=== PATIENT | female | born 1995 | race Caucasian/White ===

== ENCOUNTER → 2016-09-15 | Outpatient (CLI) | payer OTHER ==
--- NOTE | 2016-09-15 11:28 | US ---
EXAMINATION TYPE: US OB anatomy transabd DATE OF EXAM: 09/15/2016 10:08 AM COMPARISON: NONE HISTORY: 21-year-old female large for Dates, survey. TECHNIQUE: Transabdominal (TA) FINDINGS: EXAM MEASUREMENTS: GESTATIONAL AGE / DATING Physician Established: (18 weeks/6 days) EDC: 02/10/2017 Dates by Current Scan for: (19 weeks/1 days) EDC: 02/08/2017 SURVEY IUP: Single PLACENTA: Posterior PREVIA: No previa. The caudal placental margin is approximately 4 to 5 cm from the internal cervical os. NATALIO: 15.0 cm Normal CERVICAL LENGTH (transabdominal: norm > 3.0cm): 3.8 cm BIOMETRY PRESENTATION: Breech LIE: Longitudinal BPD: 4.2 cm 18 weeks / 6 days HC: 16.2 cm 19 weeks / 0 days AC: 13.3 cm 18 weeks / 6 days FL: 3.0 cm 19 weeks / 2 days ESTIMATED WEIGHT IN GRAMS: 261 grams ESTIMATED WEIGHT IN LBS/OZS: 0 lbs. 9 oz. WEIGHT PERCENTAGE BASED ON ESTABLISHED DATE: 46 % HC/AC: 1.22, Normal FL/AC: Normal HEART RATE: 170 bpm RHYTHM: Normal ANATOMY SEEN (within normal limits): Lateral Vent (< 1 cm) 0.6 cm Cisterna Magna (< 1.1 cm) 0.2 cm Nuchal Fold (< 0.6 cm) 0.4 cm Cerebellum (varies with age) 1.9 cm Choroid Plexus (bilateral) Midline Falx Cavus Septi Pellucidi Stomach Situs Nose / Lips Diaphragm Kidneys (bilateral) Bladder Cord Insert Three Vessel Cord Longitudinal Spine Transverse Spine Arms (bilateral) Legs (bilateral) ANATOMY NOT SEEN: Due to position Four Chamber Heart Outflow tracts: LVOT/RVOT TECHNOLOGIST IMPRESSION: Four chamber heart and outflow tracts not seen due to position, patie nt scheduled OB call back in 2 weeks. IMPRESSION: 1. Single live intrauterine with established gestational age of 18 weeks 6 days. Current ul trasound biometry is concordant (19 weeks 1 day) placing the child at the 46th percentile for weight. 2. The four-chamber heart and outflow tracts were not well seen due to position. The remaining anatomy appears normal. The patient is scheduled for a rescan of missed anatomy in 2 weeks.
--- NOTE | 2016-10-12 08:15 | US ---
EXAMINATION TYPE: US OB Call Back DATE OF EXAM: 10/04/2016 9:50 AM COMPARISON: Prior ultrasound September 2016 CLINICAL HISTORY: OB CALLBACK. Incomplete second trimester anatomical ultrasound study GESTATIONAL AGE / DATING Dates by Initial Survey Scan: (18 weeks/6 days) EDC: 02/10/2017 HEART RATE: 141 bpm RHYTHM: Normal ANATOMY SEEN (second anatomic survey look): Four Chamber Heart: Outflow tracts:? LVOT/RVOT ANATOMY STILL NOT SEEN (requiring an additional callback appt): MATERNAL WALL MEASUREMENT: 2.7 cm from skin to anterior uterine wall (if exam limited due to body koenig bitus). TECHNOLOGIST IMPRESSION: Had another technologist, limited to maternal body habitus and moveme nt. Heart structures appear normal. Single live intrauterine gestation is redemonstrated. Normal cephalad presentation is noted currently . Four-chamber heart and outflow tracts felt within normal limits during real-time scanning per techn ologist, still images are somewhat suboptimal. IMPRESSION: As above
== END | disposition home or self-care (01) ==
LOC: RADUSWWP 07:25
PROVIDERS: ATTEND Obstetrics & Gynecology
DX: O36.62X0 Maternal care for excessive fetal growth, second trimester, not applicable or unspecified (principal); Z3A.18 18 weeks gestation of pregnancy
CPT/HCPCS: 76811

== ENCOUNTER 2017-02-01 07:56 | Outpatient (CLI) | payer OTHER ==
[2017-02-01 10:03] VITALS: PULSE 90; RESP 16; TEMP 96.3
--- NOTE | 2017-02-02 08:31 | P.MSEPDOC ---
Presenting Problems - Arrival Data Date of Arrival on Unit: 02/01/17 Time of Arrival on Unit: 07:56 Mode of Transport: Ambulatory - Complaint OB-Reason for Admission/Chief Complaint: Acute Nausea/Vomiting, Headache Medical History - Information : 2 Para: 1 Term: 1 : 0 Abortions: Spontaneous or Elective: 0 Number of Living Children: 1 - Gestational Age Expected Date of Delivery: 02/10/17 Gestational Age by ROBYN (wks/days): 38 Weeks and 6 Days Review of Systems - Review of Systems Constitutional: No problems Breast: No problems ENT: No problems Cardiovascular: No problems Respiratory: No problems Gastrointestinal: Diarrhea Genitourinary: No problems Musculoskeletal: No problems Neurological: Dizziness Skin: No problems Vital Signs - Temperature Temperature: 96.3 F Temperature Source: Temporal Artery Scan - Pulse Pulse Oximetery Pulse Rate: 90 Pulse Assessment Method: Pulse Oximetry - Respirations Respiratory Rate: 16 Oxygen Delivery Method: Room Air O2 Sat by Pulse Oximetry: 98 Medical Screen Scoring (Pre) - Cervical Exam Dilation: 1-3 cm = 1 Membranes: Intact - Uterine Contractions Frequency: N/A Duration: N/A Intensity: N/A - Maternal Vital Signs Maternal Temperature: N/A Maternal Blood Pressure: N/A Signs of Preeclampsia: N/A Maternal Respirations: N/A - Maternal Trauma Maternal Trauma: N/A - Assessment Baseline FHR: 155 Heart Rate - NICHD Category: Category I (Normal) = 0 NST: Reactive Position: N/A Station: N/A - Total Score Total Score (Pre): 1 - Level of Risk Level of Risk: Low (0-5) Physician Notification (Pre) - Physician Notified Physician Notified Date: 02/01/17 Physician Notified Time: 08:30 Spoke With: Dr Parker New Order Received: No - Notification Comment Comment: OB will be up to the dept after he finishes surgery Physician Notification (Post) - Physician Notified Physician Notified Date: 02/01/17 Physician Notified Time: 09:15 Spoke With: Dr Parker New Order Received: Yes - Notification Comment Comment: pt here for n/v, back pain and h/a. mo signs of active labor. pt will return on for induction.pt may go home after being monitored for [address] Parker Disposition - Disposition OB Disposition: Discharge to home Discharge Date: 02/01/17 Discharge Time: 10:04 I agree with the RN Medical Screening Exam: Yes Risk & Benefit of care provided described in d/c instruction: Yes Diagnosis: FALSE LABOR AT OR AFTER 37 COMPLETED WEEKS OF GESTATION
== END 2017-02-01 10:13 | disposition home or self-care (01) ==
LOC: FBPOP 07:56
PROVIDERS: ATTEND Obstetrics & Gynecology
DX: O47.1 False labor at or after 37 completed weeks of gestation (principal); Z3A.38 38 weeks gestation of pregnancy
CPT/HCPCS: 59025; G0463; 99213

== ENCOUNTER 2017-02-01 16:30 | Outpatient (CLI) | payer OTHER ==
[2017-02-01 17:03] VITALS: BP 123/66; PULSE 87; RESP 18; TEMP 97.7
[2017-02-01 17:13] LABS: Basophils % (A) 0 %; CH 28.3; CHCM 33.1; Eosinophils # (A) 0.1 k/uL (0-0.7); Eosinophils % (A) 1 %; HCT 31.9 % (34.0-46.0); HDW 2.89; HGB 11.2 gm/dL (11.4-16.0); Large Platelets Flag Slight; Luc # (Auto) 0.47; Luc % (Auto) 4; Lymphocytes # (A) 2.7 k/uL (1.0-4.8); Lymphocytes % (A) 20 %; MCH 30.2 pg (25.0-35.0); MCHC 35.1 g/dL (31.0-37.0); MCV 86.1 fL (80.0-100.0); Mean Platelet Volume 10.5; Monocytes # (A) 0.7 k/uL (0-1.0); Monocytes % (A) 5 %; Neutrophils # (A) 9.3 k/uL (1.3-7.7); Neutrophils % (A) 70 %; RDW 14.6 % (11.5-15.5); WBC 13.2 k/uL (3.8-10.6); WBC (Perox) 14.47
[2017-02-01 17:26] LABS: ALT 34 U/L (9-52); AST 15 U/L (14-36); Blood Urea Nitrogen 7 mg/dL (7-17); LDH 373 U/L (313-618); Non-African American GFR(MDRD) >60 (>60 ml/min/1.73 sqM); Uric Acid 3.8 mg/dL (3.7-7.4)
--- NOTE | 2017-02-02 08:31 | P.MSEPDOC ---
Presenting Problems - Arrival Data Date of Arrival on Unit: 02/01/17 Time of Arrival on Unit: 16:30 Mode of Transport: Ambulatory - Complaint OB-Reason for Admission/Chief Complaint: PIH Medical History - Information : 3 Para: 1 Term: 1 : 0 Abortions: Spontaneous or Elective: 0 Number of Living Children: 1 - Gestational Age Expected Date of Delivery: 02/10/17 Gestational Age by ROBYN (wks/days): 38 Weeks and 6 Days Review of Systems - Review of Systems Constitutional: No problems Breast: No problems ENT: No problems Cardiovascular: No problems Respiratory: No problems Gastrointestinal: No problems Genitourinary: No problems Musculoskeletal: No problems Neurological: No problems Skin: No problems Vital Signs - Temperature Temperature: 97.7 F Temperature Source: Oral - Pulse Right Sitting Brachial Pulse Rate: 87 Pulse Assessment Method: Automatic Cuff - Respirations Respiratory Rate: 18 Oxygen Delivery Method: Room Air O2 Sat by Pulse Oximetry: 98 - Blood Pressure Right Arm Sitting Blood Pressure: 123/66 Blood Pressure Mean: 85 Blood Pressure Source: Automatic Cuff Medical Screen Scoring (Pre) - Cervical Exam Dilation: Exam Deferred Effacement: Exam Deferred Membranes: Intact - Uterine Contractions Frequency: N/A Duration: N/A Intensity: N/A - Maternal Vital Signs Maternal Temperature: N/A Maternal Blood Pressure: N/A Signs of Preeclampsia: Headache = 1, Nausea/Vomiting = 1, Visual Disturbance = 1 Maternal Respirations: N/A - Maternal Trauma Maternal Trauma: N/A - Assessment Baseline FHR: 120 Heart Rate - NICHD Category: Category I (Normal) = 0 NST: Reactive Position: N/A Station: N/A - Total Score Total Score (Pre): 3 - Level of Risk Level of Risk: Low (0-5) Physician Notification (Pre) - Physician Notified Physician Notified Date: 02/01/17 Physician Notified Time: 16:40 Spoke With: Keith Faustin Order Received: Yes - Notification Comment Comment: [facility] labs Medical Screen Scoring (Post) - Uterine Contractions Frequency: N/A Duration: N/A Intensity: N/A - Maternal Vital Signs Maternal Temperature: N/A Maternal Blood Pressure: N/A Signs of Preeclampsia: Headache = 1 Maternal Respirations: N/A - Maternal Trauma Maternal Trauma: N/A - Assessment Heart Rate: 135 Heart Rate - NICHD Category: Category I (Normal) = 0 NST: Reactive Position: N/A Station: N/A - Total Score Total Score (Post): 1 - Post Treatment Level of Risk Post Treatment Level of Risk: Low (0-5) Physician Notification (Post) - Physician Notified Physician Notified Date: 02/01/17 Physician Notified Time: 17:45 Physician/Practitioner Notified:: Dr. Parker Spoke With: Dr. Parker New Order Received: Yes (Discharge home) - Notification Comment Comment: Dr. Parker given report of all [facility] labs drawn. All labs within normal limits. Instructions to return on 02/03 for induction of labor. Disposition - Disposition OB Disposition: Discharge to home Discharge Date: 02/01/17 Discharge Time: 17:55 I agree with the RN Medical Screening Exam: Yes Risk & Benefit of care provided described in d/c instruction: Yes Diagnosis: RELATED CONDITIONS, UNSPECIFIED, THIRD TRIMESTER (Elevated blood pressure)
== END 2017-02-01 17:55 | disposition home or self-care (01) ==
LOC: FBPOP 16:30
PROVIDERS: ATTEND Obstetrics & Gynecology
DX: O26.893 Other specified pregnancy related conditions, third trimester (principal); R03.0 Elevated blood-pressure reading, without diagnosis of hypertension; Z3A.38 38 weeks gestation of pregnancy
CPT/HCPCS: 82565; 83615; 84450; 84460; 84520; 84550; 85025

== ENCOUNTER 2017-02-03 06:00 | Inpatient (IN) | payer OTHER ==
[2017-02-03] MEDS ORDERED: TERBUTALINE 1 MG/ML VIAL SQ PRN (06:47)
[2017-02-03] MEDS ORDERED: METHYLERGONOVINE 0.2 MG/ML 1 ML AMP IM PRN (06:47)
[2017-02-03] MEDS ORDERED: LIDOCAINE 1% (PF) 10 MG/ML (30 ML SDV) SQ PRN (06:47)
[2017-02-03] MEDS ORDERED: CARBOPROST TROMETHAMINE 250 MCG/ML 1 ML AMP IM PRN (06:47)
[2017-02-03] MEDS ORDERED: OXYTOCIN 10 UNIT/ML 1 ML VIAL IM PRN (06:47)
[2017-02-03] MEDS ORDERED: OXYTOCIN 20 UNITS/1000 ML NS 1,000 ML IV SCH (07:00)
[2017-02-03 07:07] LABS: Basophils # (A) 0.1 k/uL (0-0.2); Basophils % (A) 0 %; CH 28.6; Eosinophils # (A) 0.2 k/uL (0-0.7); Eosinophils % (A) 1 %; HCT 32.5 % (34.0-46.0); HDW 2.87; HGB 10.7 gm/dL (11.4-16.0); Large Platelets Flag Slight; Luc # (Auto) 0.31; Luc % (Auto) 2; Lymphocytes % (A) 18 %; MCH 28.8 pg (25.0-35.0); MCV 87.2 fL (80.0-100.0); Mean Platelet Volume 11.3; Monocytes # (A) 0.7 k/uL (0-1.0); Monocytes % (A) 5 %; Neutrophils # (A) 12.2 k/uL (1.3-7.7); Neutrophils % (A) 74 %; RBC 3.72 m/uL (3.80-5.40); RDW 14.5 % (11.5-15.5); WBC 16.5 k/uL (3.8-10.6); WBC (Perox) 16.86
[2017-02-03] MEDS: LACTATED RINGERS 1,000 ML IV SCH ×2 (07:16→12:42)
[2017-02-03 07:39] VITALS: BMI 36.9
[2017-02-03] MEDS ORDERED: BUTORPHANOL 1 MG/ML 1 ML VIAL IV PRN (09:11)
[2017-02-03] MEDS ORDERED: SODIUM CHLORIDE 0.9% 100 ML BAG ONE (12:31)
[2017-02-03] MEDS ORDERED: BUPIVACAINE (PF) 0.25% 30 ML VIAL ONE (12:31)
[2017-02-03] MEDS ORDERED: fentaNYL (PF) 50 MCG/ML 5 ML AMP ONE (12:31)
[2017-02-03 15:56] LABS: Glucose,Whole Blood 76 mg/dL (75-99)
[2017-02-03] MEDS ORDERED: BUPIVACAINE (PF) 0.25% 25 ML, fentaNYL (PF) 200 MCG in SODIUM CHLORIDE 0.9% 71 ML EPIDURAL ONE (16:35)
[2017-02-03] MEDS ORDERED: diphenhydrAMINE 50 MG CAP PO PRN (18:17)
[2017-02-03] MEDS ORDERED: ZOLPIDEM 5 MG TAB PO PRN (18:17)
[2017-02-03] MEDS ORDERED: SIMETHICONE 80 MG CHEWABLE PO PRN (18:17)
[2017-02-03] MEDS ORDERED: Acetaminophen-Codeine 300-30mg TAB PO PRN (18:17)
[2017-02-03] MEDS ORDERED: HYDROCORTISONE 2.5% RECTAL CREAM 30 GM TUBE RECTAL PRN (18:17)
[2017-02-03] MEDS ORDERED: ACETAMINOPHEN TAB 325 MG TAB PO PRN (18:17)
[2017-02-03] MEDS ORDERED: WITCH HAZEL 1 EACH MED..PAD TOPICAL PRN (18:17)
[2017-02-03] MEDS ORDERED: BENZOCAINE/MENTHOL SPRAY 1 GM/SPRAY AEROSOL TOPICAL PRN (18:17)
[2017-02-03] MEDS ORDERED: diphenhydrAMINE 25 MG CAP PO PRN (18:17)
[2017-02-03] MEDS ORDERED: diphenhydrAMINE 50 MG/ML 1 ML VIAL IVP PRN ×2 (18:17)
[2017-02-03] MEDS ORDERED: LANOLIN CREAM 5 GM TUBE TOPICAL PRN (18:17)
--- NOTE | 2017-02-03 18:25 | P.HPOB ---
History of Present Illness H&P Date: 02/03/17 Chief Complaint: Intrauterine at 39 weeks: Anti d positive This is a 21-year-old who has been under my care from the beginning of the . Initially in the it was noted that she was Rh antibody positive despite not receiving any Christian gamma. Her care has been coordinated with maternal medicine and there been no significant changes in her antibody titers throughout the gestation. In October at approximately 28 weeks she had a repeat Rh antibody screening was done and at that time her antibody screen was negative. She did receive Christian gamma that time. Unclear whether she has true antibody positivity We have been following her very closely with maternal- medicine. Pertinent other labs did include A- blood type Rh antibody negative was positive for anti-D rubella was immune, hepatitis B surface antigen/RPR/HIV and GBS were all negative. On physical exam vital signs are stable and afebrile. Heart regular, lungs clear, extremities without pain. Osteopathic exam unremarkable. Abdomen soft gravid uterus noted. heart tones in the 140s and reactive. She was dilated to approximate 2 cm and 60% effaced -3 station. Artificial rupture of membranes was performed and clear fluid is noted. Assessment intrauterine at term. Plan Pitocin augmentation of labor with epidural used for analgesia. 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 ) History of Any Multi-Drug Resistant Organisms: None Reported Past Surgical History: No Surgical Hx Reported Past Anesthesia/Blood Transfusion Reactions: No Reported Reaction Past Psychological History: ADD/ADHD, No Psychological Hx Reported Smoking Status: Never smoker - Past Family History Father Family Medical History: Hypertension Medications and Allergies Home Medications Medication Instructions Recorded Confirmed Type Ysc-Qnni-Roimm Acid 1 each PO DAILY 05/01/14 02/03/17 History [-U Capsule] Allergies Allergy/AdvReac Type Severity Reaction Status Date / Time sulfamethoxazole Allergy Rash/Hives Verified 02/03/17 06:46 [From ] trimethoprim [From ] Allergy Rash/Hives Verified 02/03/17 06:46 Exam Osteopathic Statement: *. No significant issues noted on an osteopathic structural exam other than those noted in the History and Physical/Consult. - Vital Signs Vital signs: Vital Signs Temp Pulse Resp BP 02/03/17 06:46 97.2 F L 96 18 132/66 Intake and Output 02/03/17 02/03/17 02/03/17 06:59 14:59 22:59 Other: # Voids 2 Weight 113.398 kg Results Result Diagrams: 02/03/17 06:56 Abnormal Lab Results - Last 24 Hours (Table) 02/03/17 Range/Units 06:56 WBC 16.5 H (3.8-10.6) k/uL RBC 3.72 L (3.80-5.40) m/uL Hgb 10.7 L (11.4-16.0) gm/dL Hct 32.5 L (34.0-46.0) % Neutrophils # 12.2 H (1.3-7.7) k/uL
--- NOTE | 2017-02-03 18:26 | P.PROBDLV ---
Vaginal Delivery Note - . Vaginal Delivery Note: Lisbet progressed to complete and pushing with spontaneous vaginal delivery of a viable female over an intact perineum. Falling deliver the head anterior posterior shoulders were delivered with gentle downward and upward traction followed by the remainder the baby. Mouth and nares were then bulb suctioned and the baby was placed on mother's abdomen where the umbilical cord was allowed to pulsate for 30 seconds prior to clamping and cutting. Nursery personnel was present to assume care. Placenta was then delivered intact and Pitocin was added to the IV. scores were 8 and 8 at one and 5 minutes respectively and the weight is currently pending. Both mother and baby currently appear stable.
[2017-02-03] MEDS: IBUPROFEN 600 MG TAB PO PRN (20:14)
[2017-02-03] MEDS: Acetaminophen-Codeine 300-30mg TAB PO PRN (22:36)
[2017-02-03] MEDS: SENNOSIDES-DOCUSATE SODIUM 1 EACH TAB PO SCH (22:37)
[2017-02-04] MEDS: IBUPROFEN 600 MG TAB PO PRN ×3 (02:08→19:18)
[2017-02-04] MEDS: Acetaminophen-Codeine 300-30mg TAB PO PRN ×4 (04:14→20:19)
[2017-02-04 10:54] VITALS: RESP 16
--- NOTE | 2017-02-04 13:19 | P.PNOBGVD ---
Subjective - Subjective Principal diagnosis: day 1 Interval history: Tessie is doing very well day 1. She is involuting, voiding, tolerating her diet. She voices no complaint. Vital signs are stable and afebrile. Heart regular, lungs clear, extremities without pain. Assessment day 1. Plan continue current care. Patient reports: Reports appetite normal [place]: doing well Objective - Latest Vital Signs Latest vital signs: Vital Signs Temp Pulse Resp BP Pulse Ox 02/04/17 08:00 97.5 F L 100 16 131/85 02/04/17 04:00 98.2 F 95 20 121/76 100 02/04/17 00:00 98.3 F 104 H 19 126/73 96 02/03/17 20:11 97.6 F 94 18 125/74 98 02/03/17 19:41 97.5 F L 98 17 121/93 98 02/03/17 19:11 96 16 120/59 02/03/17 18:55 98 16 130/64 02/03/17 18:40 93 16 134/70 02/03/17 18:25 93 16 134/70 02/03/17 18:10 117 H 16 115/62 Intake and Output 02/03/17 02/04/17 02/04/17 22:59 06:59 14:59 Output Total 150 Balance -150 Output: Estimated Blood Loss 150 Other: # Voids 2 2 - Exam Lungs: bilateral: normal Chest: Normal S1, Normal S2 Extremities: Present: normal Abdomen: Present: normal appearance, soft Uterus: Present: normal, firm
[2017-02-04] MEDS: SENNOSIDES-DOCUSATE SODIUM 1 EACH TAB PO SCH (14:40)
[2017-02-05] MEDS: SENNOSIDES-DOCUSATE SODIUM 1 EACH TAB PO SCH ×2 (00:29→08:12)
[2017-02-05] MEDS: IBUPROFEN 600 MG TAB PO PRN ×2 (01:23→07:48)
[2017-02-05] MEDS: Acetaminophen-Codeine 300-30mg TAB PO PRN ×2 (01:24→07:47)
[2017-02-05 08:11] VITALS: BP 121/71; PULSE 80; TEMP 97.8
--- NOTE | 2017-02-05 09:20 | P.DS ---
Providers Date of admission: 02/03/17 06:30 Expected date of discharge: 02/05/17 Attending physician: Montana Parker Primary care physician: Stated None Hospital Course: Macie is doing very well day 2. She is involuting, voiding, and she is tolerating her diet. She voices no complaints. Vital signs stable and afebrile. Heart regular, lungs clear, extremities without pain. Abdomen is soft uterus is firm lochia is reported be light. Assessment day 2. Plan discharged home follow up with me in 6 weeks. Prescriptions for pain reliever have been provided. Patient Condition at Discharge: Good Plan - Discharge Summary New Discharge Prescriptions: New Acetaminophen-Codeine 300-30mg [Tylenol #3] 1 tab PO Q4H PRN #30 tablet PRN Reason: Pain Ibuprofen [Motrin] 600 mg PO Q6HR PRN #30 tab PRN Reason: Pain No Action Qcn-Ityp-Bnkin Acid [-U Capsule] 1 cap PO DAILY Discharge Medication List Alp-Atza-Mcfmy Acid [-U Capsule] 1 cap PO DAILY 05/01/14 [ History] Acetaminophen-Codeine 300-30mg [Tylenol #3] 1 tab PO Q4H PRN #30 tablet [Rx] Ibuprofen [Motrin] 600 mg PO Q6HR PRN #30 tab 02/05/17 [Rx] Follow up Appointment(s)/Referral(s): Montana Parker DO [Doctor of Osteopathic Medicine] - 6 Weeks Activity/Diet/Wound Care/Special Instructions: No heavy lifting, limit stairs and driving, and pelvic rest. If any high temperatures, heavy bleeding, or severe pain call Discharge Disposition: HOME SELF-CARE
== END 2017-02-05 11:20 | disposition home or self-care (01) | DRG 775 ==
LOC: 4FBP 06:30
PROVIDERS: ADMIT Obstetrics & Gynecology; ATTEND Obstetrics & Gynecology
PROC: 10E0XZZ Delivery of Products of Conception, External Approach (ICD-10-PCS; principal; 2017-02-03)
DX: O99.344 Other mental disorders complicating childbirth (principal); F90.9 Attention-deficit hyperactivity disorder, unspecified type; Z37.0 Single live birth; Z3A.39 39 weeks gestation of pregnancy; Z88.1 Allergy status to other antibiotic agents; Z88.2 Allergy status to sulfonamides; Z82.49 Family history of ischemic heart disease and other diseases of the circulatory system
CPT/HCPCS: 85025; 88307

== ENCOUNTER → 2017-05-25 | Outpatient (CLI) | payer OTHER ==
--- NOTE | 2017-05-25 10:26 | US ---
EXAMINATION TYPE: US pelvis complete transvag DATE OF EXAM: 05/25/2017 COMPARISON: prev OB scans only CLINICAL HISTORY: IUD in Place Z97.5. Pt states for IUD placement, Dr unable to find strings on exam TECHNIQUE: Transvaginal (TV) and Transabdominal (TA), pt stated her bladder felt very full, TV done to supplement IUD images Date of LMP: Pt states unknown EXAM MEASUREMENTS: Uterus: 7.6 x 3.3 x 5.6 cm Endometrial Stripe: 0.9 cm Right Ovary: 2.2 x 1.7 x 1.4 cm Left Ovary: 2.4 x 1.8 x 1.8 cm 1. Uterus: Anteverted Appeared wnl, IUD in correct placement 2. Endometrium: ?possible fluid within canal (pt states recent negative test), otherwise a ppeared wnl 3. Right Ovary: wnl 4. Left Ovary: wnl 5. Bilateral Adnexa: wnl 6. Posterior cul-de-sac: wnl IMPRESSION: 1. Intrauterine device appropriately placed within the endometrial canal. 2. Small amount of intraendometrial fluid could relate to the phase of menses, however correlation wi th beta hCG is recommended to exclude potential ectopic or early gestation.
== END | disposition home or self-care (01) ==
LOC: RADUSWWP 08:18
PROVIDERS: ATTEND Obstetrics & Gynecology
DX: T83.32XA Displacement of intrauterine contraceptive device, initial encounter (principal)
CPT/HCPCS: 76830; 76856

== ENCOUNTER 2019-11-04 15:08 | Emergency (ER) | payer OTHER ==
--- NOTE | 2019-11-04 15:48 | ED ---
Abdominal Pain HPI - General Chief Complaint: Abdominal Pain Stated Complaint: Abd Pain Time Seen by Provider: 11/04/19 15:18 Source: patient Mode of arrival: ambulatory Limitations: no limitations - History of Present Illness Initial Comments: 24-year-old female with history of hiatal hernia and previous cholecystectomy presenting today for chief complaint of constipation, burning left upper quadrant abdominal pain. Patient states that she has history of hiatal hernia and for the past week she has had a burning sensation in the upper abdomen she states that time she is a sour taste in her mouth. Patient states the sensation worsens greatly with eating. patient denies melena, hematochezia. Patient states she has been constipated for the past week. Denies vomiting, admits to nausea. Denies chest pressure, shortness of breath, denies pain with deep inspiration. Patient denies any other complaints and upon arrival she appears well there is no signs of acute distress. Patient denies , denies sexual activity and states she has IUD implanted (Mirena). - Related Data Home Medications Medication Instructions Recorded Confirmed Bsr-Ebic-Astqq Acid 1 cap PO DAILY 05/01/14 02/03/17 [-U Capsule] Previous Rx's Medication Instructions Recorded Acetaminophen-Codeine 300-30mg 1 tab PO Q4H PRN #30 tablet 02/05/17 [Tylenol #3] Ibuprofen [Motrin] 600 mg PO Q6HR PRN #30 tab 02/05/17 Famotidine [Pepcid] 20 mg PO DAILY 7 Days #7 tablet 11/04/19 Ondansetron Odt [Zofran Odt] 4 mg PO Q8HR PRN 7 Days #21 tab 11/04/19 Polyethylene Glycol 3350 [Miralax] 17 gm PO DAILY 7 Days #7 packet 11/04/19 Allergies Allergy/AdvReac Type Severity Reaction Status Date / Time sulfamethoxazole Allergy Rash/Hives Verified 11/04/19 15:17 [From ] trimethoprim [From ] Allergy Rash/Hives Verified 11/04/19 15:17 Review of Systems ROS Statement: Those systems with pertinent positive or pertinent negative responses have been documented in the HPI. ROS Other: All systems not noted in ROS Statement are negative. 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 Eye: Pupils are equal, round and reactive to light, extra-ocular movements are intact. No nystagmus. There is normal conjunctiva bilaterally. No signs of icterus. Cardiovascular: There is a regular rate and rhythm. No murmur, rub or gallop is appreciated. Respiratory: Lungs are clear to auscultation, respirations are non-labored, breath sounds are equal. No wheezes, stridor, rales, or rhonchi. Gastrointestinal: Soft, non-distended, no ventral hernia, not present with patient lift head off stretcher, abdomen is very mildly tender to palpation of the upper abdomen mostly LUQ, epigastric regions, remaining abdomen is nontender, abdomen without masses or organomegaly noted. There is no rebound or guarding present. Musculoskeletal: Normal ROM, no tenderness. Strength 5/5. Sensation intact. Radial pulses equal bilaterally 2+. Neurological: A&O x 3. CN II-XII intact grossly, There are no obvious motor or sensory deficits. Coordination appears grossly intact. Speech is normal. Skin: Skin is warm and dry and no rashes or lesions are noted. Psychiatric: Cooperative, appropriate mood & affect, normal judgment. Limitations: no limitations Course Vital Signs 11/04/19 11/04/19 15:14 17:10 Temperature 97.9 F 98.0 F Pulse Rate 92 75 Respiratory 20 18 Rate Blood Pressure 130/86 128/84 O2 Sat by Pulse 100 99 Oximetry Medical Decision Making - Medical Decision Making Patient's KUB revealed no evidence of obstructive process. There is evidence of constipation. Patient given glycerin suppository per she states she would like to have a bowel movement home not in the hospital. Patient is prescribed bowel regimen. Patient's abdominal exam was benign there is minimal pain to deep palpation. Patient's symptoms as described on history consistent with her history of hiatal hernia and most likely gastric reflux. I discussed the importance of GI follow-up for endoscopy. Patient denied any chest pressure or shortness of breath. EKG no acute findings. At this time feel patient is stable for discharge with outpatient GI and primary care follow-up patient is prescribed Pepcid and given a GI cocktail the emergency department. With the primary discussed at length patient verbalized understanding and was discharged appearing well after discussing case with Dr. Laureano - Lab Data Result diagrams: 11/04/19 15:40 11/04/19 15:40 Lab Results 11/04/19 11/04/19 11/04/19 Range/Units 15:40 15:40 15:40 WBC 9.9 (3.8-10.6) k/uL RBC 4.87 (3.80-5.40) m/uL Hgb 14.6 (11.4-16.0) gm/dL Hct 45.1 (34.0-46.0) % MCV 92.6 (80.0-100.0) fL MCH 30.0 (25.0-35.0) pg MCHC 32.5 (31.0-37.0) g/dL RDW 13.2 (11.5-15.5) % Plt Count 225 (150-450) k/uL Neutrophils % 64 % Lymphocytes % 28 % Monocytes % 5 % Eosinophils % 2 % Basophils % 0 % Neutrophils # 6.3 (1.3-7.7) k/uL Lymphocytes # 2.7 (1.0-4.8) k/uL Monocytes # 0.5 (0-1.0) k/uL Eosinophils # 0.2 (0-0.7) k/uL Basophils # 0.0 (0-0.2) k/uL Sodium (137-145) mmol/L Potassium (3.5-5.1) mmol/L Chloride (98-107) mmol/L Carbon Dioxide (22-30) mmol/L Anion Gap mmol/L BUN (7-17) mg/dL Creatinine (0.52-1.04) mg/dL Est GFR (CKD-EPI)AfAm (>60 ml/min/1.73 sqM) Est GFR (CKD-EPI)NonAf (>60 ml/min/1.73 sqM) Glucose (74-99) mg/dL Plasma Lactic Acid Keys[place]wn (0.7-2.0) mmol/L Calcium (8.4-10.2) mg/dL Total Bilirubin (0.2-1.3) mg/dL AST (14-36) U/L ALT (4-34) U/L Alkaline Phosphatase (38-126) U/L Total Protein (6.3-8.2) g/dL Albumin (3.5-5.0) g/dL Lipase (23-300) U/L Urine Color Yellow Urine Appearance Clear (Clear) Urine pH 6.5 (5.0-8.0) Ur Specific [place] 1.024 (1.001-1.035) Urine Protein Negative (Negative) Urine Glucose (UA) Negative (Negative) Urine Ketones Negative (Negative) Urine Blood Negative (Negative) Urine Nitrite Negative (Negative) Urine Bilirubin Negative (Negative) Urine Urobilinogen <2.0 (<2.0) mg/dL Ur Leukocyte Esterase Negative (Negative) Urine HCG, Qual Not Detected (Not Detectd) 11/04/19 11/04/19 Range/Units 15:40 15:40 WBC (3.8-10.6) k/uL RBC (3.80-5.40) m/uL Hgb (11.4-16.0) gm/dL Hct (34.0-46.0) % MCV (80.0-100.0) fL MCH (25.0-35.0) pg MCHC (31.0-37.0) g/dL RDW (11.5-15.5) % Plt Count (150-450) k/uL Neutrophils % % Lymphocytes % % Monocytes % % Eosinophils % % Basophils % % Neutrophils # (1.3-7.7) k/uL Lymphocytes # (1.0-4.8) k/uL Monocytes # (0-1.0) k/uL Eosinophils # (0-0.7) k/uL Basophils # (0-0.2) k/uL Sodium 137 (137-145) mmol/L Potassium 4.3 (3.5-5.1) mmol/L Chloride 105 (98-107) mmol/L Carbon Dioxide 26 (22-30) mmol/L Anion Gap 6 mmol/L BUN 13 (7-17) mg/dL Creatinine 0.67 (0.52-1.04) mg/dL Est GFR (CKD-EPI)AfAm >90 (>60 ml/min/1.73 sqM) Est GFR (CKD-EPI)NonAf >90 (>60 ml/min/1.73 sqM) Glucose 94 (74-99) mg/dL Plasma Lactic Acid Keys[place]wn 0.6 L (0.7-2.0) mmol/L Calcium 9.8 (8.4-10.2) mg/dL Total Bilirubin 0.6 (0.2-1.3) mg/dL AST 38 H (14-36) U/L ALT 42 H (4-34) U/L Alkaline Phosphatase 116 (38-126) U/L Total Protein 7.5 (6.3-8.2) g/dL Albumin 4.4 (3.5-5.0) g/dL Lipase 43 (23-300) U/L Urine Color Urine Appearance (Clear) Urine pH (5.0-8.0) Ur Specific [place] (1.001-1.035) Urine Protein (Negative) Urine Glucose (UA) (Negative) Urine Ketones (Negative) Urine Blood (Negative) Urine Nitrite (Negative) Urine Bilirubin (Negative) Urine Urobilinogen (<2.0) mg/dL Ur Leukocyte Esterase (Negative) Urine HCG, Qual (Not Detectd) - EKG Data EKG Comments: Ventricular rate 96 bpm, DE interval 136 ms, QRS duration 90 ms, QT/QTC 366/462 ms. This is normal sinus rhythm with a sinus arrhythmia noted. There is no ST elevation or depression appreciated. No acute findings. Disposition Clinical Impression: Constipation, Epigastric pain, Hx of hiatal hernia Disposition: HOME SELF-CARE Condition: Good Instructions (If sedation given, give patient instructions): Hiatal Hernia (ED), Gastroesophageal Reflux Disease (ED), Abdominal Pain (ED) Additional Instructions: Please use medication as discussed. Please follow-up with family doctor in the next 2 days, as well as GI specialist for evaluation of epigastric pain. Please return to emergency room if the symptoms increase or worsen or for any other concerns. Prescriptions: Polyethylene Glycol 3350 [Miralax] 17 gm PO DAILY 7 Days #7 packet Famotidine [Pepcid] 20 mg PO DAILY 7 Days #7 tablet Ondansetron Odt [Zofran Odt] 4 mg PO Q8HR PRN 7 Days #21 tab PRN Reason: Nausea Is patient prescribed a controlled substance at d/c from ED?: No Referrals: Sapphire Sarah MD [Primary Care Provider] - 1-2 days Julia Toussaint MD [STAFF PHYSICIAN] - 1-2 days Time of Disposition: 17:04
[2019-11-04 15:54] LABS: Basophils % (A) 0 %; Eosinophils # (A) 0.2 k/uL (0-0.7); Eosinophils % (A) 2 %; HCT 45.1 % (34.0-46.0); HGB 14.6 gm/dL (11.4-16.0); Lymphocytes # (A) 2.7 k/uL (1.0-4.8); Lymphocytes % (A) 28 %; MCHC 32.5 g/dL (31.0-37.0); MCV 92.6 fL (80.0-100.0); Mean Platelet Volume 9.9; Monocytes # (A) 0.5 k/uL (0-1.0); Monocytes % (A) 5 %; Neutrophils # (A) 6.3 k/uL (1.3-7.7); Neutrophils % (A) 64 %; Platelet Count 225 k/uL (150-450); RBC 4.87 m/uL (3.80-5.40); RDW 13.2 % (11.5-15.5); WBC 9.9 k/uL (3.8-10.6)
[2019-11-04 16:04] LABS: ALT 42 U/L (4-34); AST 38 U/L (14-36); African American GFR (CKD) >90 (>60 ml/min/1.73 sqM); Albumin 4.4 g/dL (3.5-5.0); Alkaline Phosphatase 116 U/L (38-126); Anion Gap 6 mmol/L; Blood Urea Nitrogen 13 mg/dL (7-17); Calcium 9.8 mg/dL (8.4-10.2); Carbon Dioxide 26 mmol/L (22-30); Chloride 105 mmol/L (98-107); Glucose 94 mg/dL (74-99); Non-African American GFR(CKD) >90 (>60 ml/min/1.73 sqM); Potassium 4.3 mmol/L (3.5-5.1); Sodium 137 mmol/L (137-145); Total Bilirubin 0.6 mg/dL (0.2-1.3); Total Protein 7.5 g/dL (6.3-8.2)
[2019-11-04 16:39] LABS: Appearance,Urine Clear (Clear); Bilirubin,Urine Negative (Negative); Blood,Urine Negative (Negative); Color,Urine Yellow; Glucose,Urine (UA) Negative (Negative); Ketones,Urine Negative (Negative); Leukocyte Esterase,Urine Negative (Negative); Nitrite,Urine Negative (Negative); PH, Urine 6.5 (5.0-8.0); Protein,Urine Negative (Negative); Specific Gravity,Urine 1.024 (1.001-1.035); Urobilinogen,Urine <2.0 mg/dL (<2.0)
[2019-11-04] MEDS ORDERED: PANTOPRAZOLE 40 MG/10 ML VIAL IVP STA (16:42)
[2019-11-04] MEDS ORDERED: MAG HYDROX/AL HYDROX/SIMETH 30 ML, HYOSCYAMINE ELIXIR 10 ML, LIDOCAINE VISCOUS 2% 10 ML PO STA ×3 (16:42)
[2019-11-04] MEDS ORDERED: GLYCERIN ADULT SUPPOSITORY 1 EACH RECTAL STA (16:42)
--- NOTE | 2019-11-04 16:46 | XR ---
EXAMINATION TYPE: XR KUB DATE OF EXAM: 11/04/2019 3:36 PM CLINICAL HISTORY: Abdominal pain and constipation for 2 days TECHNIQUE: Single upright image of the abdomen is obtained. COMPARISON: 02/19/2012. FINDINGS: Scattered gas is seen in non-distended small bowel loops. Gas and fecal material is seen in non-distended colon. There is no visceromegaly, pneumoperitoneum, or abnormal calcification apprecia ramon. The lung bases are clear and the osseous structures are intact. Intrauterine device is seen. IMPRESSION: Nonobstructive bowel gas pattern.
[2019-11-04 17:14] VITALS: BP 128/84; PULSE 75; RESP 18; TEMP 98
== END 2019-11-04 17:10 | disposition home or self-care (01) ==
LOC: EC 15:08
DX: K59.00 Constipation, unspecified (principal); R43.9 Unspecified disturbances of smell and taste; F17.200 Nicotine dependence, unspecified, uncomplicated; Z88.1 Allergy status to other antibiotic agents; Z88.2 Allergy status to sulfonamides; Z90.49 Acquired absence of other specified parts of digestive tract
CPT/HCPCS: 36415; 93005; 80053; 83605; 83690; 85025; 81003; 81025; 74018; 99284; 96374; C9113

== ENCOUNTER → 2019-12-10 | Outpatient (CLI) | payer OTHER | END | disposition home or self-care (01) | LOC: LABWHC1 07:53 | PROVIDERS: ATTEND Internal Medicine Gastroenterology | DX: U07.1 COVID-19 (principal) | CPT/HCPCS: 87635 ==

== ENCOUNTER → 2019-12-12 | Day surgery (SDC) | payer OTHER ==
[2019-12-10 14:25] VITALS: BMI 34.0
[~2019-12-12] MED LIST: LACTATED RINGERS 1,000 ML IV ONE; LACTATED RINGERS 1,000 ML IV SCH; LIDOCAINE 1% (10MG/ML) FOR IV START INTRADERMA PRN; LIDOCAINE 1% INJ 10MG/ML (20 ML MDV) ONE; MIDAZOLAM 2 MG/2 ML VIAL ONE; ONDANSETRON 4 MG/2 ML VIAL IVP ONE; PROPOFOL 10 MG/ML 20 ML VIAL IV ONE; SIMETHICONE 80 MG CHEWABLE PO STA
[2019-12-12 07:57] VITALS: TEMP 97.8
--- NOTE | 2019-12-12 08:41 | P.PCN ---
Date of Procedure: 12/12/19 Procedure(s) Performed: BRIEF HISTORY: Patient is a 24-year-old, pleasant, white female, with history of GERD and intermittent dysphagia to solids for the last several months duration. Recently was started on Pepcid 20 mg daily with no help. She isn't scheduled for an upper endoscopy with possible dilation today.. PROCEDURE PERFORMED: Esophagogastroduodenoscopy. PREOPERATIVE DIAGNOSIS: GERD/intermittent dysphagia to solids. IV sedation per anesthesia. PROCEDURE: After informed consent was obtained, the patient was brought into the endoscopy unit. IV sedation was administered by Anesthesia under continuous monitoring. Initially the Olympus GIF-140 video endoscope was inserted into the mouth. Esophagus intubated without any difficulty. It was gradually advanced into the stomach and duodenum and carefully examined. The bulb and the second part of the duodenum appeared normal. Biopsies were done from the duodenum to rule out celiac disease. The scope at this time was withdrawn to the stomach, adequately insufflated with air, and upon careful examination, mucosa of the antrum there was large amount of retained solid food in the stomach with no evidence of gastric outlet obstruction. The visualized portions of the body and the fundus and cardia appeared normal. appeared normal. The scope was then withdrawn into the esophagus. The GE junction was located at 39 cm from the incisors. There were 2 linear erosions noted in the distal esophagus consistent with LA grade B reflux esophagitis. Rest of esophagus appeared normal and the patient tolerated the procedure well. IMPRESSION: 1. Retained food and the stomach suggestive of gastroparesis. 2. Linear erosions in the distal esophagus consistent with LA grade B reflux esophagitis. RECOMMENDATIONS: The findings of this examination were discussed with the patient as well as her family. She'll be started on Prilosec 20 mg daily to be taken half hour before breakfast and follow antireflux measures. She was also advised on small frequent meals. She is in office in 3-4 weeks..
[2019-12-12 08:48] VITALS: RESP 17
[2019-12-12 08:51] VITALS: BP 115/51; PULSE 103
== END ==
LOC: ORWHC2ENDO 07:34
PROVIDERS: ATTEND Internal Medicine Gastroenterology
DX: K29.70 Gastritis, unspecified, without bleeding (principal); B96.81 Helicobacter pylori [H. pylori] as the cause of diseases classified elsewhere; K22.8 Other specified diseases of esophagus; K21.9 Gastro-esophageal reflux disease without esophagitis; K22.10 Ulcer of esophagus without bleeding; T18.2XXA Foreign body in stomach, initial encounter; F17.210 Nicotine dependence, cigarettes, uncomplicated; E66.9 Obesity, unspecified; Z68.34 Body mass index [BMI] 34.0-34.9, adult; Z88.2 Allergy status to sulfonamides; Z79.899 Other long term (current) drug therapy; Z90.49 Acquired absence of other specified parts of digestive tract; X58.XXXA Exposure to other specified factors, initial encounter
CPT/HCPCS: 81025; 88305; 88342; 43239; J2250; J2405; J2001; J2704